=== PATIENT | female | born 1985 | race Caucasian/White ===

== ENCOUNTER 2018-10-20 06:10 | Inpatient (IN) | payer MEDICAID ==
[2018-10-20] MEDS ORDERED: METHYLERGONOVINE 0.2 MG INJ IM ×2 (06:30→10:00)
[2018-10-20] MEDS ORDERED: CARBOPROST 250 MCG INJ IM ×2 (06:30→10:00)
[2018-10-20] MEDS ORDERED: OXYTOCIN 30 UNITS/LR 500 ML IV ×4 (06:30→10:00)
[2018-10-20] MEDS ORDERED: CEFAZOLIN 2 GM/50 ML (PMX) 50 ML IVPB (06:30)
[2018-10-20] MEDS ORDERED: MISOPROSTOL 200 MCG TAB PR ×2 (06:30→10:00)
[2018-10-20] MEDS ORDERED: DEXAMETHASONE 4 MG/ML 1 ML INJ (07:00)
[2018-10-20] MEDS ORDERED: ONDANSETRON 4 MG INJ (07:00)
[2018-10-20] MEDS ORDERED: SEVOFLURANE 15 MIN (07:00)
[2018-10-20] MEDS ORDERED: LIDOCAINE 2% (SDV) 5 ML INJ (07:00)
[2018-10-20] MEDS ORDERED: METOCLOPRAMIDE 10 MG INJ ×2 (07:00→08:23)
[2018-10-20 07:14] LABS: ADD MAN DIFF? NO
[2018-10-20 07:17] LABS: BASOPHIL # 0.1 10^3/ul (0.0-0.1); BASOPHILS % 0.5 % (0.0-2.0); EOSINOPHILS # 0.2 10^3/ul (0.0-0.5); EOSINOPHILS % 1.7 % (0.0-7.0); HEMATOCRIT 36.8 % (37.0-47.0); HEMOGLOBIN 12.1 g/dl (12.0-16.0); LYMPHOCYTES # 2.3 10^3/ul (0.8-2.9); LYMPHOCYTES % 19.8 % (15.0-51.0); MEAN CORPUSCULAR HEMOGLOBIN 30.7 pg (29.0-33.0); MEAN CORPUSCULAR HGB CONC 32.9 g/dl (32.0-37.0); MEAN CORPUSCULAR VOLUME 93.4 fl (82.0-101.0); MEAN PLATELET VOLUME 10.3 fl (7.4-10.4); MONOCYTES % 8.2 % (0.0-11.0); NEUTROPHILS % 68.2 % (39.0-77.0); PLATELET COUNT 307 10^3/UL (140-415); RED BLOOD COUNT 3.94 10^6/ul (4.20-5.40); RED CELL DISTRIBUTION WIDTH 13.6 % (11.5-14.5)
[2018-10-20 07:17] LABS: WHITE BLOOD COUNT 11.7 10^3/ul (4.8-10.8)
[2018-10-20] MEDS ORDERED: DIPHENHYDRAMINE 50 MG INJ IV ×4 (07:30→14:30)
[2018-10-20] MEDS ORDERED: ONDANSETRON 4 MG INJ IV ×4 (07:30→14:30)
[2018-10-20] MEDS ORDERED: KETOROLAC 30 MG INJ IV ×2 (07:30→09:30)
[2018-10-20] MEDS ORDERED: MEPERIDINE 25 MG INJ IV (07:30)
[2018-10-20] MEDS ORDERED: morphine (1 MG/ML) 10ML SYRINGE IV ×3 (07:30)
[2018-10-20 07:37] LABS: INR 0.87; PROTIME 11.9 Sec (11.9-14.9); PT RATIO 0.9
[2018-10-20 07:38] LABS: PARTIAL THROMBOPLASTIN TIME 27.3 Sec (23.0-35.0)
[2018-10-20] MEDS ORDERED: morphine SULFATE/PF (10 MG/10 ML) INJ (08:23)
[2018-10-20 08:29] LABS: HEPATITIS B SURFACE ANTIGEN NEGATIVE (NEGATIVE)
[2018-10-20] MEDS ORDERED: NALOXONE (0.4 MG/ML) INJ IV ×2 (09:30→14:30)
[2018-10-20] MEDS ORDERED: morphine 2 MG INJ IV ×3 (09:30)
[2018-10-20] MEDS ORDERED: LANOLIN HPA 1 PKT TOP (10:00)
[2018-10-20] MEDS ORDERED: OXYCODONE/ACETAMINOPHEN (5/325) TAB PO ×2 (10:00)
[2018-10-20] MEDS ORDERED: NACL 0.9% 3 ML SYG IV (10:00)
[2018-10-20] MEDS ORDERED: morphine 4 MG/ML VIAL (10:47)
[2018-10-20] MEDS: IOHEXOL 14.3 MG(I)/ML (ADULT) BTL PO (11:00)
[2018-10-20] MEDS: METHYLENE BLUE 50 MG/10 ML AMPUL IV (11:19)
[2018-10-20 11:21] LABS: ADD MAN DIFF? NO
[2018-10-20 11:26] LABS: WHITE BLOOD COUNT 18.6 10^3/ul (4.8-10.8)
[2018-10-20 11:26] LABS: BASOPHIL # 0.1 10^3/ul (0.0-0.1); BASOPHILS % 0.3 % (0.0-2.0); EOSINOPHILS # 0.1 10^3/ul (0.0-0.5); EOSINOPHILS % 0.6 % (0.0-7.0); HEMATOCRIT 29.2 % (37.0-47.0); HEMOGLOBIN 9.5 g/dl (12.0-16.0); LYMPHOCYTES # 2.7 10^3/ul (0.8-2.9); LYMPHOCYTES % 14.7 % (15.0-51.0); MEAN CORPUSCULAR HEMOGLOBIN 30.9 pg (29.0-33.0); MEAN CORPUSCULAR HGB CONC 32.5 g/dl (32.0-37.0); MEAN CORPUSCULAR VOLUME 95.1 fl (82.0-101.0); MEAN PLATELET VOLUME 9.7 fl (7.4-10.4); MONOCYTE # 1.3 10^3/ul (0.3-0.9); MONOCYTES % 7.2 % (0.0-11.0); NEUTROPHILS % 75.6 % (39.0-77.0); PLATELET COUNT 322 10^3/UL (140-415); RED BLOOD COUNT 3.07 10^6/ul (4.20-5.40); RED CELL DISTRIBUTION WIDTH 13.4 % (11.5-14.5)
[2018-10-20] MEDS ORDERED: SUCCINYLCHOLINE CHLORIDE 100 MG/5 ML SYG IV (11:40)
[2018-10-20] MEDS ORDERED: ETOMIDATE 20 MG INJ (11:40)
[2018-10-20] MEDS ORDERED: FENTAnyl 50 MCG/ML VIAL (11:47)
[2018-10-20] MEDS ORDERED: ROPIVACAINE 0.5 % 30 ML VIAL (12:41)
[2018-10-20] MEDS: OXYTOCIN 30 UNITS/LR 500 ML IV (14:28)
[2018-10-20] MEDS ORDERED: MIDAZOLAM 1 MG/ML 2 ML INJ IV (14:30)
[2018-10-20] MEDS ORDERED: LEVALBUTEROL (NEB) 1.25 MG/0.5 ML AMP HHN (14:30)
[2018-10-20] MEDS ORDERED: IPRATROPIUM (NEB) 0.5 MG/2.5 ML AMP HHN (14:30)
[2018-10-20] MEDS ORDERED: ZOLPIDEM 5 MG TAB PO (14:30)
[2018-10-20] MEDS ORDERED: ACETAMINOPHEN 500 MG TAB PO (14:30)
[2018-10-20] MEDS ORDERED: ALBUMIN HUMAN 5% 250 ML IV (14:30)
[2018-10-20] MEDS ORDERED: FENTAnyl 50 MCG/ML VIAL IV ×2 (14:30)
[2018-10-20] MEDS ORDERED: HYDROmorphONE 0.5 MG/0.5 ML SYG IV ×5 (14:30)
[2018-10-20] MEDS: CEFAZOLIN 2 GM/50 ML (PMX) 50 ML IVPB (15:02)
[2018-10-20] MEDS: LACTATED RINGER'S 1,000 ML IV ×2 (15:02→17:37)
[2018-10-20] MEDS: CIPROFLOXACIN 400MG/D5W 200 ML IVPB (15:35)
[2018-10-20 17:00] LABS: ADD MAN DIFF? NO
[2018-10-20 17:02] LABS: ABNORMAL IP MESSAGE 1; BASOPHIL # 0.1 10^3/ul (0.0-0.1); BASOPHILS % 0.3 % (0.0-2.0); EOSINOPHILS % 0.1 % (0.0-7.0); HEMATOCRIT 29.7 % (37.0-47.0); HEMOGLOBIN 9.8 g/dl (12.0-16.0); LYMPHOCYTES # 1.6 10^3/ul (0.8-2.9); LYMPHOCYTES % 8.5 % (15.0-51.0); MEAN CORPUSCULAR HEMOGLOBIN 30.8 pg (29.0-33.0); MEAN CORPUSCULAR VOLUME 93.4 fl (82.0-101.0); MEAN PLATELET VOLUME 10.7 fl (7.4-10.4); MONOCYTE # 1.5 10^3/ul (0.3-0.9); NEUTROPHIL # 15.4 10^3/ul (1.6-7.5); NEUTROPHILS % 81.8 % (39.0-77.0); PLATELET COUNT 176 10^3/UL (140-415); RED BLOOD COUNT 3.18 10^6/ul (4.20-5.40); RED CELL DISTRIBUTION WIDTH 13.9 % (11.5-14.5)
[2018-10-20 17:02] LABS: WHITE BLOOD COUNT 18.9 10^3/ul (4.8-10.8)
[2018-10-20 17:04] LABS: POSITIVE DIFF @See below
[2018-10-20 22:15] LABS: RAPID PLASMA REAGIN NONREACTIVE (NR)
[2018-10-21] MEDS: CEFAZOLIN 2 GM/50 ML (PMX) 50 ML IVPB ×2 (01:28→06:45)
[2018-10-21] MEDS: LACTATED RINGER'S 1,000 ML IV ×2 (02:23→16:31)
[2018-10-21] MEDS: ALBUMIN HUMAN 25% 100 ML IV (02:23)
[2018-10-21] MEDS: HYDROmorphONE 0.2 MG/ML PCA IV ×2 (02:48→16:58)
[2018-10-21 03:08] LABS: ADD MAN DIFF? NO
[2018-10-21 03:11] LABS: WHITE BLOOD COUNT 17.6 10^3/ul (4.8-10.8)
[2018-10-21 03:11] LABS: BASOPHIL # 0.1 10^3/ul (0.0-0.1); BASOPHILS % 0.3 % (0.0-2.0); EOSINOPHILS % 0.2 % (0.0-7.0); LYMPHOCYTES # 1.8 10^3/ul (0.8-2.9); LYMPHOCYTES % 10.1 % (15.0-51.0); MEAN CORPUSCULAR HEMOGLOBIN 30.8 pg (29.0-33.0); MEAN CORPUSCULAR HGB CONC 32.1 g/dl (32.0-37.0); MEAN CORPUSCULAR VOLUME 95.9 fl (82.0-101.0); MEAN PLATELET VOLUME 9.6 fl (7.4-10.4); MONOCYTE # 1.5 10^3/ul (0.3-0.9); MONOCYTES % 8.4 % (0.0-11.0); NEUTROPHIL # 14.1 10^3/ul (1.6-7.5); NEUTROPHILS % 80.1 % (39.0-77.0); PLATELET COUNT 220 10^3/UL (140-415); RED BLOOD COUNT 2.92 10^6/ul (4.20-5.40); RED CELL DISTRIBUTION WIDTH 14.6 % (11.5-14.5)
[2018-10-21 03:31] LABS: ANION GAP 7 (5-13); BLOOD UREA NITROGEN 8 mg/dl (7-20); CALCIUM 8.2 mg/dl (8.4-10.2); CARBON DIOXIDE 20 mmol/L (21-31); CHLORIDE 110 mmol/L (97-110); CREATININE 0.53 mg/dl (0.44-1.00); Estimated GFR > 60 mL/min (>60); GLUCOSE 112 mg/dl (70-220); POTASSIUM 4.3 mmol/L (3.5-5.1); SODIUM 137 mmol/L (135-144)
[2018-10-21 11:06] LABS: Allen Test ACCEPTAB; Arterial Base Excess 0 mmol/L (-3.0-3); Arterial COHb 0.2 % (0.0-3.0); Arterial Fraction of Oxyhgb 93.4 % (93.0-99.0); Arterial HCO3 23.8 mmol/L (22.0-26.0); Arterial MetHb 0.4 % (0.0-1.5); Arterial pCO2 35.2 mmhg (35-45); MODE ROOM AIR; Site Right Radial
[2018-10-21] MEDS: IBUPROFEN 600 MG TAB PO ×2 (12:00→17:33)
[2018-10-22] MEDS: IBUPROFEN 600 MG TAB PO ×5 (00:45→23:57)
[2018-10-22] MEDS: LACTATED RINGER'S 1,000 ML IV ×2 (07:23→20:54)
[2018-10-22 11:54] LABS: ADD MAN DIFF? NO
[2018-10-22 11:56] LABS: ABNORMAL IP MESSAGE 1; BASOPHIL # 0.1 10^3/ul (0.0-0.1); BASOPHILS % 0.3 % (0.0-2.0); EOSINOPHILS # 0.2 10^3/ul (0.0-0.5); EOSINOPHILS % 0.8 % (0.0-7.0); HEMATOCRIT 23.7 % (37.0-47.0); HEMOGLOBIN 7.9 g/dl (12.0-16.0); LYMPHOCYTES # 1.5 10^3/ul (0.8-2.9); LYMPHOCYTES % 7.8 % (15.0-51.0); MEAN CORPUSCULAR HEMOGLOBIN 31.2 pg (29.0-33.0); MEAN CORPUSCULAR HGB CONC 33.3 g/dl (32.0-37.0); MEAN CORPUSCULAR VOLUME 93.7 fl (82.0-101.0); MEAN PLATELET VOLUME 9.1 fl (7.4-10.4); MONOCYTE # 1.7 10^3/ul (0.3-0.9); MONOCYTES % 9.3 % (0.0-11.0); NEUTROPHILS % 80.5 % (39.0-77.0); PLATELET COUNT 249 10^3/UL (140-415); RED BLOOD COUNT 2.53 10^6/ul (4.20-5.40); RED CELL DISTRIBUTION WIDTH 14.6 % (11.5-14.5)
[2018-10-22 11:56] LABS: WHITE BLOOD COUNT 18.7 10^3/ul (4.8-10.8)
[2018-10-22 12:01] LABS: POSITIVE DIFF @See below
[2018-10-22] MEDS: OXYCODONE/ACETAMINOPHEN (5/325) TAB PO ×2 (12:28→18:39)
[2018-10-22 17:01] LABS: IMMEDIATE SPIN CROSSMATCH 1 4
[2018-10-23 05:58] LABS: ADD MAN DIFF? NO
[2018-10-23] MEDS: IBUPROFEN 600 MG TAB PO (05:58)
[2018-10-23] MEDS: BISACODYL 10 MG SUPP PR ×2 (05:59→11:30)
[2018-10-23 06:22] LABS: WHITE BLOOD COUNT 14.4 10^3/ul (4.8-10.8)
[2018-10-23 06:22] LABS: BASOPHIL # 0.1 10^3/ul (0.0-0.1); BASOPHILS % 0.4 % (0.0-2.0); EOSINOPHILS # 0.4 10^3/ul (0.0-0.5); EOSINOPHILS % 2.9 % (0.0-7.0); HEMOGLOBIN 9.2 g/dl (12.0-16.0); LYMPHOCYTES # 2.1 10^3/ul (0.8-2.9); LYMPHOCYTES % 14.2 % (15.0-51.0); MEAN CORPUSCULAR HEMOGLOBIN 30.6 pg (29.0-33.0); MEAN CORPUSCULAR HGB CONC 32.9 g/dl (32.0-37.0); MEAN PLATELET VOLUME 9.9 fl (7.4-10.4); MONOCYTE # 1.4 10^3/ul (0.3-0.9); MONOCYTES % 9.6 % (0.0-11.0); NEUTROPHIL # 10.3 10^3/ul (1.6-7.5); NEUTROPHILS % 71.8 % (39.0-77.0); PLATELET COUNT 266 10^3/UL (140-415); RED BLOOD COUNT 3.01 10^6/ul (4.20-5.40); RED CELL DISTRIBUTION WIDTH 15.1 % (11.5-14.5)
[2018-10-23 06:34] LABS: PHOSPHORUS 4.5 mg/dl (2.5-4.9)
[2018-10-23 06:38] LABS: ANION GAP 7 (5-13); BLOOD UREA NITROGEN 14 mg/dl (7-20); CALCIUM 8.2 mg/dl (8.4-10.2); CARBON DIOXIDE 23 mmol/L (21-31); CHLORIDE 110 mmol/L (97-110); CREATININE 0.79 mg/dl (0.44-1.00); Estimated GFR > 60 mL/min (>60); GLUCOSE 85 mg/dl (70-220); POTASSIUM 3.5 mmol/L (3.5-5.1); SODIUM 140 mmol/L (135-144)
[2018-10-23] MEDS: HYDROCODONE/APAP (5/325) TAB PO ×4 (07:47→22:53)
[2018-10-23] MEDS: SOD CHLORIDE 0.45% 1,000 ML IV (13:14)
[2018-10-23] MEDS: HYDROCORTISONE 2.5% 30 GM RECT CR PR (17:18)
[2018-10-23] MEDS: OXYCODONE/ACETAMINOPHEN (5/325) TAB PO (22:56)
[2018-10-24] MEDS: SOD CHLORIDE 0.45% 1,000 ML IV ×2 (02:39→16:36)
[2018-10-24] MEDS: OXYCODONE/ACETAMINOPHEN (5/325) TAB PO ×4 (04:33→19:49)
[2018-10-24 05:33] LABS: ADD MAN DIFF? NO
[2018-10-24 05:38] LABS: WHITE BLOOD COUNT 12.3 10^3/ul (4.8-10.8)
[2018-10-24 05:38] LABS: BASOPHIL # 0.1 10^3/ul (0.0-0.1); BASOPHILS % 0.4 % (0.0-2.0); EOSINOPHILS # 0.3 10^3/ul (0.0-0.5); EOSINOPHILS % 2.6 % (0.0-7.0); HEMATOCRIT 26.5 % (37.0-47.0); HEMOGLOBIN 8.8 g/dl (12.0-16.0); LYMPHOCYTES # 2.3 10^3/ul (0.8-2.9); LYMPHOCYTES % 18.3 % (15.0-51.0); MEAN CORPUSCULAR HEMOGLOBIN 30.8 pg (29.0-33.0); MEAN CORPUSCULAR HGB CONC 33.2 g/dl (32.0-37.0); MEAN CORPUSCULAR VOLUME 92.7 fl (82.0-101.0); MEAN PLATELET VOLUME 9.2 fl (7.4-10.4); MONOCYTE # 1.1 10^3/ul (0.3-0.9); MONOCYTES % 9.1 % (0.0-11.0); NEUTROPHIL # 8.5 10^3/ul (1.6-7.5); NEUTROPHILS % 68.7 % (39.0-77.0); PLATELET COUNT 308 10^3/UL (140-415); RED BLOOD COUNT 2.86 10^6/ul (4.20-5.40); RED CELL DISTRIBUTION WIDTH 14.9 % (11.5-14.5)
[2018-10-24 05:59] LABS: PHOSPHORUS 3.8 mg/dl (2.5-4.9)
[2018-10-24 05:59] LABS: MAGNESIUM 2.1 mg/dl (1.7-2.5)
[2018-10-24 06:16] LABS: ANION GAP 5 (5-13); BLOOD UREA NITROGEN 11 mg/dl (7-20); CALCIUM 8.3 mg/dl (8.4-10.2); CARBON DIOXIDE 25 mmol/L (21-31); CHLORIDE 109 mmol/L (97-110); CREATININE 0.58 mg/dl (0.44-1.00); Estimated GFR > 60 mL/min (>60); GLUCOSE 89 mg/dl (70-220); SODIUM 139 mmol/L (135-144)
[2018-10-24] MEDS: HYDROCODONE/APAP (5/325) TAB PO (09:44)
[2018-10-25] MEDS: OXYCODONE/ACETAMINOPHEN (5/325) TAB PO ×6 (01:24→20:08)
[2018-10-25 05:13] LABS: ADD MAN DIFF? NO
[2018-10-25 05:25] LABS: BASOPHILS % 0.3 % (0.0-2.0); EOSINOPHILS # 0.3 10^3/ul (0.0-0.5); EOSINOPHILS % 2.3 % (0.0-7.0); HEMATOCRIT 28.6 % (37.0-47.0); HEMOGLOBIN 9.3 g/dl (12.0-16.0); LYMPHOCYTES # 1.5 10^3/ul (0.8-2.9); LYMPHOCYTES % 12.4 % (15.0-51.0); MEAN CORPUSCULAR HEMOGLOBIN 30.2 pg (29.0-33.0); MEAN CORPUSCULAR HGB CONC 32.5 g/dl (32.0-37.0); MEAN CORPUSCULAR VOLUME 92.9 fl (82.0-101.0); MEAN PLATELET VOLUME 9.3 fl (7.4-10.4); MONOCYTE # 1.3 10^3/ul (0.3-0.9); MONOCYTES % 10.8 % (0.0-11.0); NEUTROPHIL # 8.8 10^3/ul (1.6-7.5); PLATELET COUNT 365 10^3/UL (140-415); RED BLOOD COUNT 3.08 10^6/ul (4.20-5.40); RED CELL DISTRIBUTION WIDTH 14.7 % (11.5-14.5)
[2018-10-25 05:57] LABS: ANION GAP 6 (5-13); BLOOD UREA NITROGEN 13 mg/dl (7-20); CALCIUM 8.4 mg/dl (8.4-10.2); CARBON DIOXIDE 26 mmol/L (21-31); CHLORIDE 106 mmol/L (97-110); CREATININE 0.63 mg/dl (0.44-1.00); Estimated GFR > 60 mL/min (>60); GLUCOSE 94 mg/dl (70-220); POTASSIUM 4.2 mmol/L (3.5-5.1); SODIUM 138 mmol/L (135-144)
[2018-10-25] MEDS: SOD CHLORIDE 0.45% 1,000 ML IV ×3 (06:54→23:00)
[2018-10-25 14:09] LABS: TROPONIN-I < 0.012 ng/ml (0.000-0.120)
[2018-10-25 14:14] LABS: D-DIMER 3199.96 ng/ml (<460)
[2018-10-25] MEDS: DOCUSATE SODIUM 100 MG CAP PO ×2 (15:34→20:07)
[2018-10-25] MEDS: hydrALAzine 20 MG INJ IV (15:56)
[2018-10-25] MEDS: BISACODYL 10 MG SUPP PR (20:07)
[2018-10-26] MEDS: OXYCODONE/ACETAMINOPHEN (5/325) TAB PO ×4 (03:39→21:16)
[2018-10-26] MEDS: SOD CHLORIDE 0.45% 1,000 ML IV ×4 (03:40→21:32)
[2018-10-26 06:08] LABS: ADD MAN DIFF? NO
[2018-10-26 06:20] LABS: ABNORMAL IP MESSAGE 1; BASOPHIL # 0.1 10^3/ul (0.0-0.1); BASOPHILS % 0.4 % (0.0-2.0); EOSINOPHILS # 0.3 10^3/ul (0.0-0.5); EOSINOPHILS % 2.4 % (0.0-7.0); HEMATOCRIT 28.9 % (37.0-47.0); HEMOGLOBIN 9.4 g/dl (12.0-16.0); LYMPHOCYTES # 1.7 10^3/ul (0.8-2.9); LYMPHOCYTES % 11.7 % (15.0-51.0); MEAN CORPUSCULAR HEMOGLOBIN 30.1 pg (29.0-33.0); MEAN CORPUSCULAR HGB CONC 32.5 g/dl (32.0-37.0); MEAN CORPUSCULAR VOLUME 92.6 fl (82.0-101.0); MEAN PLATELET VOLUME 9.2 fl (7.4-10.4); MONOCYTE # 1.8 10^3/ul (0.3-0.9); MONOCYTES % 12.5 % (0.0-11.0); NEUTROPHIL # 10.1 10^3/ul (1.6-7.5); NEUTROPHILS % 71.6 % (39.0-77.0); PLATELET COUNT 445 10^3/UL (140-415); RED BLOOD COUNT 3.12 10^6/ul (4.20-5.40); RED CELL DISTRIBUTION WIDTH 14.5 % (11.5-14.5)
[2018-10-26 06:20] LABS: WHITE BLOOD COUNT 14.2 10^3/ul (4.8-10.8)
[2018-10-26 06:31] LABS: POSITIVE DIFF @See below
[2018-10-26 06:44] LABS: ANION GAP 6 (5-13); BLOOD UREA NITROGEN 12 mg/dl (7-20); CALCIUM 8.5 mg/dl (8.4-10.2); CARBON DIOXIDE 26 mmol/L (21-31); CHLORIDE 106 mmol/L (97-110); CREATININE 0.52 mg/dl (0.44-1.00); Estimated GFR > 60 mL/min (>60); GLUCOSE 97 mg/dl (70-220); POTASSIUM 4.1 mmol/L (3.5-5.1); SODIUM 138 mmol/L (135-144)
[2018-10-26] MEDS: DOCUSATE SODIUM 100 MG CAP PO ×2 (09:05→21:16)
[2018-10-26 14:02] LABS: ADD UMIC YES; UR ASCORBIC ACID NEGATIVE (NEGATIVE); UR BILIRUBIN (Dip) NEGATIVE (NEGATIVE); UR BLOOD (Dip) 2+ mg/dL (NEGATIVE); UR CLARITY CLEAR (CLEAR); UR COLOR STRAW (YELLOW); UR GLUCOSE (Dip) NEGATIVE (NEGATIVE); UR KETONES (Dip) TRACE mg/dL (NEGATIVE); UR LEUKOCYTE ESTERASE (Dip) NEGATIVE Leu/ul (NEGATIVE); UR MUCUS FEW /HPF (NONE SEEN); UR NITRITE (Dip) NEGATIVE (NEGATIVE); UR RBC 10 /HPF (0-5); UR SPECIFIC GRAVITY (Dip) 1.006 (1.003-1.030); UR TOTAL PROTEIN (Dip) NEGATIVE (NEGATIVE); UR UROBILINOGEN (Dip) NEGATIVE (NEGATIVE); UR WBC 3 /HPF (0-5)
[2018-10-27] MEDS: OXYCODONE/ACETAMINOPHEN (5/325) TAB PO ×5 (05:02→21:53)
[2018-10-27 05:41] LABS: ADD MAN DIFF? NO
[2018-10-27 05:46] LABS: BASOPHIL # 0.1 10^3/ul (0.0-0.1); BASOPHILS % 0.6 % (0.0-2.0); EOSINOPHILS # 0.4 10^3/ul (0.0-0.5); EOSINOPHILS % 3.2 % (0.0-7.0); HEMOGLOBIN 9.8 g/dl (12.0-16.0); LYMPHOCYTES # 2.2 10^3/ul (0.8-2.9); LYMPHOCYTES % 17.6 % (15.0-51.0); MEAN CORPUSCULAR HEMOGLOBIN 30.3 pg (29.0-33.0); MEAN CORPUSCULAR HGB CONC 32.7 g/dl (32.0-37.0); MEAN CORPUSCULAR VOLUME 92.9 fl (82.0-101.0); MONOCYTE # 1.5 10^3/ul (0.3-0.9); MONOCYTES % 11.7 % (0.0-11.0); NEUTROPHIL # 8.3 10^3/ul (1.6-7.5); PLATELET COUNT 540 10^3/UL (140-415); RED BLOOD COUNT 3.23 10^6/ul (4.20-5.40); RED CELL DISTRIBUTION WIDTH 14.1 % (11.5-14.5)
[2018-10-27 05:46] LABS: WHITE BLOOD COUNT 12.7 10^3/ul (4.8-10.8)
[2018-10-27 06:12] LABS: ANION GAP 8 (5-13); BLOOD UREA NITROGEN 12 mg/dl (7-20); CALCIUM 8.8 mg/dl (8.4-10.2); CARBON DIOXIDE 27 mmol/L (21-31); CHLORIDE 103 mmol/L (97-110); CREATININE 0.52 mg/dl (0.44-1.00); Estimated GFR > 60 mL/min (>60); GLUCOSE 93 mg/dl (70-220); POTASSIUM 4.1 mmol/L (3.5-5.1); SODIUM 138 mmol/L (135-144)
[2018-10-27] MEDS: SOD CHLORIDE 0.45% 1,000 ML IV ×3 (06:35→23:24)
[2018-10-27] MEDS: DOCUSATE SODIUM 100 MG CAP PO ×2 (08:07→20:46)
[2018-10-27] MEDS: METOPROLOL (XL) 50 MG TAB PO (12:07)
[2018-10-27] MEDS: LACTATED RINGER'S 1,000 ML IV (17:42)
[2018-10-27] MEDS: SILVER SULFADIAZINE 1% 25 GM CR TOP (18:44)
[2018-10-27] MEDS: ENOXAPARIN 100 MG/ML SYG SC (20:58)
[2018-10-27] MEDS ORDERED: ENOXAPARIN 100 MG/ML SYG SC (21:00)
[2018-10-28] MEDS: SOD CHLORIDE 0.45% 1,000 ML IV ×2 (06:00→13:32)
[2018-10-28] MEDS: OXYCODONE/ACETAMINOPHEN (5/325) TAB PO ×4 (06:05→20:50)
[2018-10-28] MEDS: DOCUSATE SODIUM 100 MG CAP PO ×2 (09:01→20:50)
[2018-10-28] MEDS: METOPROLOL (XL) 50 MG TAB PO (09:03)
[2018-10-28] MEDS: ENOXAPARIN 100 MG/ML SYG SC ×2 (09:29→20:56)
[2018-10-28 10:19] LABS: ADD MAN DIFF? NO
[2018-10-28 10:22] LABS: WHITE BLOOD COUNT 12.9 10^3/ul (4.8-10.8)
[2018-10-28 10:22] LABS: BASOPHIL # 0.1 10^3/ul (0.0-0.1); BASOPHILS % 0.4 % (0.0-2.0); EOSINOPHILS # 0.4 10^3/ul (0.0-0.5); EOSINOPHILS % 3.2 % (0.0-7.0); HEMATOCRIT 32.8 % (37.0-47.0); HEMOGLOBIN 10.4 g/dl (12.0-16.0); LYMPHOCYTES # 1.8 10^3/ul (0.8-2.9); LYMPHOCYTES % 13.8 % (15.0-51.0); MEAN CORPUSCULAR HEMOGLOBIN 29.4 pg (29.0-33.0); MEAN CORPUSCULAR HGB CONC 31.7 g/dl (32.0-37.0); MEAN CORPUSCULAR VOLUME 92.7 fl (82.0-101.0); MEAN PLATELET VOLUME 9.1 fl (7.4-10.4); MONOCYTE # 1.2 10^3/ul (0.3-0.9); MONOCYTES % 9.1 % (0.0-11.0); NEUTROPHIL # 9.1 10^3/ul (1.6-7.5); NEUTROPHILS % 70.6 % (39.0-77.0); PLATELET COUNT 656 10^3/UL (140-415); RED BLOOD COUNT 3.54 10^6/ul (4.20-5.40); RED CELL DISTRIBUTION WIDTH 14.1 % (11.5-14.5)
[2018-10-28] MEDS: SILVER SULFADIAZINE 1% 25 GM CR TOP (10:22)
[2018-10-28 10:40] LABS: ANION GAP 10 (5-13); BLOOD UREA NITROGEN 14 mg/dl (7-20); CARBON DIOXIDE 25 mmol/L (21-31); CHLORIDE 104 mmol/L (97-110); CREATININE 0.56 mg/dl (0.44-1.00); Estimated GFR > 60 mL/min (>60); GLUCOSE 123 mg/dl (70-220); MAGNESIUM 1.9 mg/dl (1.7-2.5); PHOSPHORUS 4.1 mg/dl (2.5-4.9); POTASSIUM 3.8 mmol/L (3.5-5.1); SODIUM 139 mmol/L (135-144)
[2018-10-28] MEDS: SENNA TAB PO ×2 (13:00→20:49)
[2018-10-28] MEDS: BISACODYL 10 MG SUPP PR (15:35)
[2018-10-29] MEDS: SOD CHLORIDE 0.45% 1,000 ML IV ×4 (01:55→22:37)
[2018-10-29] MEDS: OXYCODONE/ACETAMINOPHEN (5/325) TAB PO ×5 (01:56→22:37)
[2018-10-29] MEDS: SENNA TAB PO ×2 (08:40→21:05)
[2018-10-29] MEDS: DOCUSATE SODIUM 100 MG CAP PO ×2 (08:40→21:05)
[2018-10-29] MEDS: METOPROLOL (XL) 50 MG TAB PO (08:40)
[2018-10-29] MEDS: SILVER SULFADIAZINE 1% 25 GM CR TOP (08:41)
[2018-10-29] MEDS: ENOXAPARIN 100 MG/ML SYG SC (08:48)
[2018-10-29] MEDS: SOD CHLORIDE 0.9% 100 ML ×2 (12:38→12:50)
[2018-10-29] MEDS: IOHEXOL 100 ML (12:39)
[2018-10-29] MEDS: IOHEXOL 300MG/ML 150 ML BTL (12:49)
[2018-10-29 16:14] LABS: IRON 24 ug/dl (35-150)
[2018-10-29 16:24] LABS: % IRON SATURATION 9 % SAT (22-52); TOTAL IRON BINDING CAPACITY 276 ug/dl (241-421)
[2018-10-29 18:57] LABS: ADD MAN DIFF? NO
[2018-10-29 18:58] LABS: BASOPHIL # 0.1 10^3/ul (0.0-0.1); BASOPHILS % 0.5 % (0.0-2.0); EOSINOPHILS # 0.4 10^3/ul (0.0-0.5); EOSINOPHILS % 3.2 % (0.0-7.0); HEMATOCRIT 33.3 % (37.0-47.0); HEMOGLOBIN 10.6 g/dl (12.0-16.0); LYMPHOCYTES # 2.6 10^3/ul (0.8-2.9); LYMPHOCYTES % 19.3 % (15.0-51.0); MEAN CORPUSCULAR HEMOGLOBIN 29.4 pg (29.0-33.0); MEAN CORPUSCULAR HGB CONC 31.8 g/dl (32.0-37.0); MEAN CORPUSCULAR VOLUME 92.5 fl (82.0-101.0); MEAN PLATELET VOLUME 8.8 fl (7.4-10.4); MONOCYTE # 1.2 10^3/ul (0.3-0.9); MONOCYTES % 8.9 % (0.0-11.0); NEUTROPHIL # 8.7 10^3/ul (1.6-7.5); RED CELL DISTRIBUTION WIDTH 13.9 % (11.5-14.5)
[2018-10-29 18:58] LABS: WHITE BLOOD COUNT 13.5 10^3/ul (4.8-10.8)
[2018-10-29 19:02] LABS: PLATELET COUNT 698 10^3/UL (140-415)
[2018-10-30 05:38] LABS: ADD MAN DIFF? NO
[2018-10-30 05:45] LABS: BASOPHIL # 0.1 10^3/ul (0.0-0.1); BASOPHILS % 0.8 % (0.0-2.0); EOSINOPHILS # 0.5 10^3/ul (0.0-0.5); EOSINOPHILS % 3.9 % (0.0-7.0); HEMATOCRIT 32.8 % (37.0-47.0); HEMOGLOBIN 10.4 g/dl (12.0-16.0); LYMPHOCYTES # 2.4 10^3/ul (0.8-2.9); LYMPHOCYTES % 19.2 % (15.0-51.0); MEAN CORPUSCULAR HEMOGLOBIN 29.5 pg (29.0-33.0); MEAN CORPUSCULAR HGB CONC 31.7 g/dl (32.0-37.0); MEAN CORPUSCULAR VOLUME 93.2 fl (82.0-101.0); MEAN PLATELET VOLUME 8.7 fl (7.4-10.4); MONOCYTE # 1.2 10^3/ul (0.3-0.9); MONOCYTES % 9.3 % (0.0-11.0); NEUTROPHIL # 7.6 10^3/ul (1.6-7.5); NEUTROPHILS % 62.2 % (39.0-77.0); PLATELET COUNT 718 10^3/UL (140-415); RED BLOOD COUNT 3.52 10^6/ul (4.20-5.40); RED CELL DISTRIBUTION WIDTH 13.9 % (11.5-14.5)
[2018-10-30 05:45] LABS: WHITE BLOOD COUNT 12.3 10^3/ul (4.8-10.8)
[2018-10-30] MEDS: OXYCODONE/ACETAMINOPHEN (5/325) TAB PO ×4 (07:03→21:08)
[2018-10-30] MEDS: DOCUSATE SODIUM 100 MG CAP PO ×2 (08:21→21:06)
[2018-10-30] MEDS: SENNA TAB PO ×2 (08:22→21:06)
[2018-10-30] MEDS: METOPROLOL (XL) 50 MG TAB PO (08:22)
[2018-10-30] MEDS: SILVER SULFADIAZINE 1% 25 GM CR TOP (08:23)
[2018-10-30] MEDS: SOD CHLORIDE 0.9% 500 ML (14:37)
[2018-10-30] MEDS: IOHEXOL 300MG/ML 30 ML BTL ×2 (14:37)
[2018-10-30] MEDS: SOD CHLORIDE 0.45% 1,000 ML IV (17:21)
[2018-10-31] MEDS: OXYCODONE/ACETAMINOPHEN (5/325) TAB PO ×3 (02:22→21:58)
[2018-10-31] MEDS: HYDROCODONE/APAP (5/325) TAB PO (08:02)
[2018-10-31] MEDS: SOD CHLORIDE 0.45% 1,000 ML IV ×2 (08:03→21:32)
[2018-10-31] MEDS: SENNA TAB PO ×2 (08:06→21:58)
[2018-10-31] MEDS: DOCUSATE SODIUM 100 MG CAP PO ×2 (08:07→21:58)
[2018-10-31] MEDS: METOPROLOL (XL) 50 MG TAB PO (08:07)
[2018-10-31] MEDS: SILVER SULFADIAZINE 1% 25 GM CR TOP (08:07)
[2018-10-31 08:48] LABS: ADD MAN DIFF? NO
[2018-10-31 08:51] LABS: BASOPHIL # 0.1 10^3/ul (0.0-0.1); BASOPHILS % 0.9 % (0.0-2.0); EOSINOPHILS # 0.5 10^3/ul (0.0-0.5); EOSINOPHILS % 3.4 % (0.0-7.0); HEMATOCRIT 34.9 % (37.0-47.0); HEMOGLOBIN 11.2 g/dl (12.0-16.0); LYMPHOCYTES # 2.5 10^3/ul (0.8-2.9); LYMPHOCYTES % 17.8 % (15.0-51.0); MEAN CORPUSCULAR HEMOGLOBIN 29.9 pg (29.0-33.0); MEAN CORPUSCULAR HGB CONC 32.1 g/dl (32.0-37.0); MEAN CORPUSCULAR VOLUME 93.1 fl (82.0-101.0); MEAN PLATELET VOLUME 8.5 fl (7.4-10.4); MONOCYTE # 1.1 10^3/ul (0.3-0.9); MONOCYTES % 7.8 % (0.0-11.0); NEUTROPHIL # 9.1 10^3/ul (1.6-7.5); PLATELET COUNT 793 10^3/UL (140-415); RED BLOOD COUNT 3.75 10^6/ul (4.20-5.40); RED CELL DISTRIBUTION WIDTH 13.9 % (11.5-14.5)
[2018-10-31 08:51] LABS: WHITE BLOOD COUNT 13.8 10^3/ul (4.8-10.8)
[2018-10-31 09:12] LABS: ALANINE AMINOTRANSFERASE 11 IU/L (13-69); ALBUMIN 3.7 g/dl (3.3-4.9); ALBUMIN/GLOBULIN RATIO 1.05; ALKALINE PHOSPHATASE 108 IU/L (42-121); ANION GAP 8 (5-13); ASPARTATE AMINO TRANSFERASE 36 IU/L (15-46); BILIRUBIN,INDIRECT 0.4 mg/dl (0-1.1); BILIRUBIN,TOTAL 0.4 mg/dl (0.2-1.3); BLOOD UREA NITROGEN 14 mg/dl (7-20); CALCIUM 9.1 mg/dl (8.4-10.2); CARBON DIOXIDE 26 mmol/L (21-31); CHLORIDE 105 mmol/L (97-110); CREATININE 0.54 mg/dl (0.44-1.00); Estimated GFR > 60 mL/min (>60); GLUCOSE 134 mg/dl (70-220); MAGNESIUM 1.9 mg/dl (1.7-2.5); PHOSPHORUS 4.5 mg/dl (2.5-4.9); POTASSIUM 4.2 mmol/L (3.5-5.1); SODIUM 139 mmol/L (135-144); TOTAL PROTEIN 7.2 g/dl (6.1-8.1)
[2018-11-01 06:32] LABS: ADD MAN DIFF? NO
[2018-11-01 06:42] LABS: BASOPHIL # 0.1 10^3/ul (0.0-0.1); BASOPHILS % 0.9 % (0.0-2.0); EOSINOPHILS # 0.5 10^3/ul (0.0-0.5); EOSINOPHILS % 3.4 % (0.0-7.0); HEMATOCRIT 34.6 % (37.0-47.0); HEMOGLOBIN 10.8 g/dl (12.0-16.0); LYMPHOCYTES # 2.5 10^3/ul (0.8-2.9); LYMPHOCYTES % 18.2 % (15.0-51.0); MEAN CORPUSCULAR HEMOGLOBIN 29.5 pg (29.0-33.0); MEAN CORPUSCULAR HGB CONC 31.2 g/dl (32.0-37.0); MEAN CORPUSCULAR VOLUME 94.5 fl (82.0-101.0); MEAN PLATELET VOLUME 8.9 fl (7.4-10.4); MONOCYTES % 7.5 % (0.0-11.0); NEUTROPHILS % 65.7 % (39.0-77.0); PLATELET COUNT 819 10^3/UL (140-415); RED BLOOD COUNT 3.66 10^6/ul (4.20-5.40); RED CELL DISTRIBUTION WIDTH 13.9 % (11.5-14.5)
[2018-11-01 06:42] LABS: WHITE BLOOD COUNT 13.7 10^3/ul (4.8-10.8)
[2018-11-01 07:01] LABS: MAGNESIUM 2.1 mg/dl (1.7-2.5)
[2018-11-01 07:01] LABS: PHOSPHORUS 4.5 mg/dl (2.5-4.9)
[2018-11-01 07:07] LABS: ANION GAP 6 (5-13); BLOOD UREA NITROGEN 14 mg/dl (7-20); CALCIUM 9.2 mg/dl (8.4-10.2); CARBON DIOXIDE 25 mmol/L (21-31); CHLORIDE 108 mmol/L (97-110); CREATININE 0.54 mg/dl (0.44-1.00); Estimated GFR > 60 mL/min (>60); GLUCOSE 89 mg/dl (70-220); POTASSIUM 4.1 mmol/L (3.5-5.1); SODIUM 139 mmol/L (135-144)
[2018-11-01] MEDS: SENNA TAB PO ×2 (08:16→21:13)
[2018-11-01] MEDS: DOCUSATE SODIUM 100 MG CAP PO ×2 (08:16→21:13)
[2018-11-01] MEDS: OXYCODONE/ACETAMINOPHEN (5/325) TAB PO ×2 (08:16→17:18)
[2018-11-01] MEDS: METOPROLOL (XL) 50 MG TAB PO (08:16)
[2018-11-01] MEDS: SILVER SULFADIAZINE 1% 25 GM CR TOP (08:17)
[2018-11-01] MEDS: SOD CHLORIDE 0.45% 1,000 ML IV (10:52)
[2018-11-02] MEDS: SOD CHLORIDE 0.45% 1,000 ML IV (00:41)
[2018-11-02 06:24] LABS: ADD MAN DIFF? NO
[2018-11-02 06:31] LABS: BASOPHIL # 0.1 10^3/ul (0.0-0.1); BASOPHILS % 0.9 % (0.0-2.0); EOSINOPHILS # 0.4 10^3/ul (0.0-0.5); EOSINOPHILS % 2.8 % (0.0-7.0); HEMOGLOBIN 11.1 g/dl (12.0-16.0); LYMPHOCYTES # 2.1 10^3/ul (0.8-2.9); LYMPHOCYTES % 14.9 % (15.0-51.0); MEAN CORPUSCULAR HEMOGLOBIN 29.8 pg (29.0-33.0); MEAN CORPUSCULAR HGB CONC 31.7 g/dl (32.0-37.0); MEAN CORPUSCULAR VOLUME 94.1 fl (82.0-101.0); MEAN PLATELET VOLUME 8.9 fl (7.4-10.4); NEUTROPHIL # 9.8 10^3/ul (1.6-7.5); PLATELET COUNT 848 10^3/UL (140-415); RED BLOOD COUNT 3.72 10^6/ul (4.20-5.40); RED CELL DISTRIBUTION WIDTH 13.8 % (11.5-14.5)
[2018-11-02 06:46] LABS: ANION GAP 7 (5-13); BLOOD UREA NITROGEN 15 mg/dl (7-20); CALCIUM 9.2 mg/dl (8.4-10.2); CARBON DIOXIDE 25 mmol/L (21-31); CHLORIDE 109 mmol/L (97-110); CREATININE 0.56 mg/dl (0.44-1.00); Estimated GFR > 60 mL/min (>60); GLUCOSE 105 mg/dl (70-220); POTASSIUM 4.4 mmol/L (3.5-5.1); SODIUM 141 mmol/L (135-144)
[2018-11-02] MEDS: OXYCODONE/ACETAMINOPHEN (5/325) TAB PO (06:46)
[2018-11-02] MEDS: METOPROLOL (XL) 50 MG TAB PO (08:19)
[2018-11-02] MEDS: SENNA TAB PO ×2 (08:19→20:27)
[2018-11-02] MEDS: DOCUSATE SODIUM 100 MG CAP PO ×2 (08:19→20:27)
[2018-11-02] MEDS: ACETAMINOPHEN 325 MG TAB PO ×2 (13:50→22:22)
[2018-11-02] MEDS: SILVER SULFADIAZINE 1% 25 GM CR TOP (13:52)
[2018-11-03 06:09] LABS: ADD MAN DIFF? NO
[2018-11-03 06:21] LABS: BASOPHIL # 0.1 10^3/ul (0.0-0.1); BASOPHILS % 0.6 % (0.0-2.0); EOSINOPHILS # 0.4 10^3/ul (0.0-0.5); HEMATOCRIT 35.8 % (37.0-47.0); HEMOGLOBIN 11.5 g/dl (12.0-16.0); LYMPHOCYTES # 2.3 10^3/ul (0.8-2.9); LYMPHOCYTES % 16.1 % (15.0-51.0); MEAN CORPUSCULAR HEMOGLOBIN 29.7 pg (29.0-33.0); MEAN CORPUSCULAR HGB CONC 32.1 g/dl (32.0-37.0); MEAN CORPUSCULAR VOLUME 92.5 fl (82.0-101.0); MEAN PLATELET VOLUME 8.9 fl (7.4-10.4); MONOCYTE # 1.1 10^3/ul (0.3-0.9); MONOCYTES % 7.5 % (0.0-11.0); NEUTROPHIL # 9.9 10^3/ul (1.6-7.5); NEUTROPHILS % 69.8 % (39.0-77.0); RED BLOOD COUNT 3.87 10^6/ul (4.20-5.40)
[2018-11-03 06:21] LABS: WHITE BLOOD COUNT 14.1 10^3/ul (4.8-10.8)
[2018-11-03 06:34] LABS: PLATELET COUNT 902 10^3/UL (140-415)
[2018-11-03 06:54] LABS: ANION GAP 7 (5-13); BLOOD UREA NITROGEN 13 mg/dl (7-20); CALCIUM 9.1 mg/dl (8.4-10.2); CARBON DIOXIDE 24 mmol/L (21-31); CHLORIDE 110 mmol/L (97-110); CREATININE 0.46 mg/dl (0.44-1.00); Estimated GFR > 60 mL/min (>60); GLUCOSE 96 mg/dl (70-220); POTASSIUM 4.1 mmol/L (3.5-5.1); SODIUM 141 mmol/L (135-144)
[2018-11-03 07:03] LABS: MAGNESIUM 2.2 mg/dl (1.7-2.5)
[2018-11-03 07:03] LABS: PHOSPHORUS 4.1 mg/dl (2.5-4.9)
[2018-11-03] MEDS: DOCUSATE SODIUM 100 MG CAP PO ×2 (08:12→20:42)
[2018-11-03] MEDS: SENNA TAB PO ×2 (08:12→20:42)
[2018-11-03] MEDS: METOPROLOL (XL) 50 MG TAB PO (08:13)
[2018-11-03] MEDS: ACETAMINOPHEN 325 MG TAB PO ×2 (08:14→19:33)
[2018-11-03] MEDS: SILVER SULFADIAZINE 1% 25 GM CR TOP (08:14)
[2018-11-04 05:04] LABS: ADD MAN DIFF? NO
[2018-11-04 05:22] LABS: ANION GAP 11 (5-13); BLOOD UREA NITROGEN 17 mg/dl (7-20); CALCIUM 9.1 mg/dl (8.4-10.2); CARBON DIOXIDE 23 mmol/L (21-31); CHLORIDE 108 mmol/L (97-110); CREATININE 0.55 mg/dl (0.44-1.00); Estimated GFR > 60 mL/min (>60); GLUCOSE 98 mg/dl (70-220); POTASSIUM 4.3 mmol/L (3.5-5.1); SODIUM 142 mmol/L (135-144)
[2018-11-04 05:24] LABS: WHITE BLOOD COUNT 13.5 10^3/ul (4.8-10.8)
[2018-11-04 05:24] LABS: BASOPHIL # 0.1 10^3/ul (0.0-0.1); BASOPHILS % 0.9 % (0.0-2.0); EOSINOPHILS # 0.4 10^3/ul (0.0-0.5); EOSINOPHILS % 3.1 % (0.0-7.0); HEMATOCRIT 35.6 % (37.0-47.0); HEMOGLOBIN 11.4 g/dl (12.0-16.0); LYMPHOCYTES # 2.6 10^3/ul (0.8-2.9); LYMPHOCYTES % 19.5 % (15.0-51.0); MEAN CORPUSCULAR HEMOGLOBIN 29.8 pg (29.0-33.0); MEAN CORPUSCULAR VOLUME 93.2 fl (82.0-101.0); MEAN PLATELET VOLUME 8.9 fl (7.4-10.4); MONOCYTE # 1.1 10^3/ul (0.3-0.9); MONOCYTES % 7.9 % (0.0-11.0); NEUTROPHIL # 8.9 10^3/ul (1.6-7.5); NEUTROPHILS % 65.8 % (39.0-77.0); PLATELET COUNT 870 10^3/UL (140-415); RED BLOOD COUNT 3.82 10^6/ul (4.20-5.40)
[2018-11-04] MEDS: ACETAMINOPHEN 325 MG TAB PO ×2 (07:13→15:19)
[2018-11-04] MEDS: SENNA TAB PO (09:00)
[2018-11-04] MEDS: DOCUSATE SODIUM 100 MG CAP PO (09:00)
[2018-11-04] MEDS: METOPROLOL (XL) 50 MG TAB PO (09:23)
[2018-11-04] MEDS: SOD FERRIC GLUC COMPLX 125 MG in SOD CHLORIDE 0.9% 100 ML IVPB (13:14)
[2018-11-04] MEDS: SILVER SULFADIAZINE 1% 25 GM CR TOP (13:14)
[2018-11-04] MEDS: CEFTRIAXONE 1 GM/50 ML (PMX) 50 ML IVPB (16:10)
[2018-11-04] MEDS: OXYCODONE/ACETAMINOPHEN (5/325) TAB PO (18:28)
== END 2018-11-04 19:20 | disposition home or self-care (01) | DRG 783 ==
LOC: L-D 06:10 → 6WM 10-21 20:29 → L-D 10:06 → ICU 14:06
PROVIDERS: Obstetrics & Gynecology
PROC: 10D00Z1 Extraction of Products of Conception, Low, Open Approach (ICD-10-PCS; principal; 2018-10-20 07:30)
PROC: 0UB70ZZ Excision of Bilateral Fallopian Tubes, Open Approach (ICD-10-PCS; 2018-10-20 07:30)
PROC: 0U940ZZ Drainage of Uterine Supporting Structure, Open Approach (ICD-10-PCS; 2018-10-20 07:30)
PROC: 30233N1 Transfusion of Nonautologous Red Blood Cells into Peripheral Vein, Percutaneous Approach (ICD-10-PCS; 2018-10-20 07:30)
DX: O34.219 Maternal care for unspecified type scar from previous cesarean delivery (principal); K66.1 Hemoperitoneum; N99.820 Postprocedural hemorrhage of a genitourinary system organ or structure following a genitourinary system procedure; I82.612 Acute embolism and thrombosis of superficial veins of left upper extremity; N99.71 Accidental puncture and laceration of a genitourinary system organ or structure during a genitourinary system procedure; O87.0 Superficial thrombophlebitis in the puerperium; O99.13 Other diseases of the blood and blood-forming organs and certain disorders involving the immune mechanism complicating the puerperium; O86.20 Urinary tract infection following delivery, unspecified; O75.4 Other complications of obstetric surgery and procedures; D47.3 Essential (hemorrhagic) thrombocythemia; D72.829 Elevated white blood cell count, unspecified; O99.63 Diseases of the digestive system complicating the puerperium; K59.00 Constipation, unspecified; O90.81 Anemia of the puerperium; O99.824 Streptococcus B carrier state complicating childbirth; D50.0 Iron deficiency anemia secondary to blood loss (chronic); Z3A.39 39 weeks gestation of pregnancy; Z37.0 Single live birth; F41.9 Anxiety disorder, unspecified; R00.0 Tachycardia, unspecified; Z30.2 Encounter for sterilization
CPT/HCPCS: 36430; 36600; 71045; 71275; 74176; 74177; 76536; 80048; 80053; 81001; 82803; 83540; 83735; 84100; 84484; 85025; 85378; 85610; 85730; 86592; 86850; 86900; 86901; 86920; 87040-91; 87086; 87340; 88302; 93005; 93970; 97116; 97161; 97530; 99464